=== PATIENT | female | born 2000 | race Caucasian/White ===

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

== ENCOUNTER 2021-04-29 12:06 | Emergency (ER) | payer MEDICAID, OTHER ==
[~2021-04-29] VITALS: Ht 520.7 cm; Wt 65.8 kg
[2021-04-29 12:31] LABS: *BILIRUBIN,URIN NEGATIVE (NEGATIVE); *BLOOD, URINE 3+ (NEGATIVE); *CLARITY,URINE CLOUDY (CLEAR); *COLOR,URINE AMBER (YELLOW); *KETONES,URINE TRACE (NEGATIVE); *UROBILINOGEN,URINE 0.2 E.U./dl (NORMAL); LEUKOCYTE ESTERASE ,URINE NEGATIVE (NEGATIVE); NITRITE, URINE NEGATIVE (NEGATIVE); PH,URINE 5.5 (5.0-8.0); UGLUCOSE NEGATIVE (NEGATIVE)
[2021-04-29 12:33] LABS: *URINE HCG, QUAL NEGATIVE (NEGATIVE)
[2021-04-29 13:22] LABS: HEMATOCRIT 40.1 % (31.2-41.9); MEAN CORPUSCULAR HEMOGLOBIN 32.4 uug (24.7-32.8); MEAN CORPUSCULAR VOLUME 93.9 fL (75.5-95.3); PLATELET COUNT (AUTO) 307 K/uL (179-408)
[2021-04-29] MEDS ORDERED: CEFTRIAXONE 500 MG VIAL IM ONE (13:45)
[2021-04-29] MEDS ORDERED: AZITHROMYCIN 250 MG TABLET PO ONE (13:45)
--- NOTE | 2021-04-29 14:00 | NUR ---
pt states she was Dx w/UTI and RX'd Bactrim, on for 7 days w/o it clearing. N/V for last 2 days. Denies CP, SOB, dizziness.
[2021-04-29] MEDS ORDERED: LIDOCAINE HCL 1% 20 ML VIAL ONE (14:04)
[2021-04-29] MEDS ORDERED: AZITHROMYCIN 250 MG TABLET ONE (14:04)
[2021-04-29] MEDS ORDERED: CEFTRIAXONE 500 MG VIAL ONE (14:04)
[2021-04-29 14:21] LABS: RBC,URINE TNTC /HPF (0-3); WBC,URINE 0-3 /HPF (0-3)
[2021-04-29 14:22] LABS: BACTERIA,URINE NONE SEEN /HPF (NONE SEEN); SQUAMOUS EPITHELIAL CELL,UR FEW /HPF (NONE SEEN)
[2021-04-29] MEDS ORDERED: NITR100C11 PO (14:50)
--- NOTE | 2021-04-29 14:54 | NUR ---
Gave pt RX and d/c instructions, pt verbalized understanding.
--- NOTE | 2021-04-29 14:55 | NUR ---
Gave pt RX and d/c instructions, pt verbalized understanding.
[2021-05-01 06:06] LABS: *GC NAA Negative (Negative); *TRIC.VAG. NAA Negative (Negative)
== END 2021-04-29 15:02 | disposition home or self-care (01) ==
LOC: ER 12:06
DX: N30.91 Cystitis, unspecified with hematuria (principal); Z87.440 Personal history of urinary (tract) infections
CPT/HCPCS: 36415; 81001; 84703; 85025; 87086; 87491; 96372; 99283; J0696; J3490; A4663; Q0144

== ENCOUNTER 2022-10-29 10:56 | Emergency (ER) | payer MEDICAID ==
[~2022-10-29] VITALS: Ht 152.4 cm; Wt 68.0 kg
[~2022-10-29 10:56] MED LIST: NITR100C11 PO
[2022-10-29] MEDS ORDERED: FAMOTIDINE. 20 MG/2 ML VIAL IV ONE ×2 (11:15→11:18)
[2022-10-29] MEDS ORDERED: IV NORMAL SALINE 1000 ML BAG IV ONE (11:15)
[2022-10-29] MEDS ORDERED: ONDANSETRON 4 MG/2 ML VIAL IV ONE ×2 (11:15→13:00)
[2022-10-29] MEDS ORDERED: ONDANSETRON 4 MG/2 ML VIAL ONE ×2 (11:17→12:49)
--- NOTE | 2022-10-29 11:20 | NUR ---
Patient a/o x 4. Nad noted. Observed patient walking into ER and room asssignment with a steady gait.
[2022-10-29 11:55] LABS: HEMATOCRIT 42.8 % (31.2-41.9); MEAN CORPUSCULAR HEMOGLOBIN 30.5 uug (24.7-32.8); PLATELET COUNT (AUTO) 468 K/uL (179-408)
[2022-10-29 11:57] LABS: *BILIRUBIN,URIN NEGATIVE (NEGATIVE); *BLOOD, URINE 3+ (NEGATIVE); *CLARITY,URINE CLEAR (CLEAR); *COLOR,URINE YELLOW (YELLOW); *KETONES,URINE 3+ (NEGATIVE); *UROBILINOGEN,URINE 0.2 E.U./dl (NORMAL); LEUKOCYTE ESTERASE ,URINE NEGATIVE (NEGATIVE); NITRITE, URINE NEGATIVE (NEGATIVE); UGLUCOSE NEGATIVE (NEGATIVE)
[2022-10-29 12:02] LABS: *URINE HCG, QUAL NEGATIVE (NEGATIVE)
[2022-10-29 12:06] LABS: CREATININE 0.6 mg/dL (0.6-1.3); POTASSIUM 3.4 mmol/L (3.5-5.1)
[2022-10-29 12:18] LABS: BILIRUBIN,DIRECT 0.2 mg/dL (0.0-0.2); BILIRUBIN,TOTAL 1.6 mg/dL (0.2-1.0)
[2022-10-29 12:19] LABS: BACTERIA,URINE MODERATE /HPF (NONE SEEN); SQUAMOUS EPITHELIAL CELL,UR MODERATE /HPF (NONE SEEN); WBC,URINE NONE SEEN /HPF (0-3)
--- NOTE | 2022-10-29 13:26 | NUR ---
Patient given cup of ice to see if she tolerates well. Dr. Rodriguez aware.
[2022-10-29] MEDS ORDERED: LIDOCAINE VISCUS 2% 15 ML UDC ONE (13:53)
[2022-10-29] MEDS ORDERED: MAG HYDROX/AL HYDROX/SIMETH 30 ML LIQUID UDC ONE (13:54)
[2022-10-29] MEDS ORDERED: FAMO-132 PO (13:58)
[2022-10-29] MEDS ORDERED: ONDA4TAB11 PO (13:58)
[2022-10-29] MEDS ORDERED: LIDOCAINE VISCUS 2% 15 ML UDC MM ONE (14:00)
[2022-10-29] MEDS ORDERED: MAG HYDROX/AL HYDROX/SIMETH 30 ML LIQUID UDC PO ONE (14:00)
[2022-10-29 14:07] VITALS: BP 138/90
--- NOTE | 2022-10-29 14:10 | NUR ---
Patient discharged to home in stable condition. A/O x 4. NAD noted.Ambulatory with a steady gait. All belongings with patient. Mother picked up patient. Written and verbal after care instructions given. Patient verbalizes understanding of instructions. Stressed follow up or return to ER for worsening s/s.
== END 2022-10-29 14:11 | disposition home or self-care (01) ==
LOC: ER 10:59
DX: R11.15 Cyclical vomiting syndrome unrelated to migraine (principal)
CPT/HCPCS: 99285; 96374; 71045; 96361; 96375; 80076; 80048; 81001; 84703; 83690; 85025; 84484; 36415; 96376; 87040; J3490; J2405 ×2; J7040; 93005; A4663

== ENCOUNTER 2023-12-18 14:21 | Emergency (ER) | payer MEDICAID ==
[~2023-12-18] VITALS: Ht 152.4 cm; Wt 65.8 kg
[~2023-12-18 14:21] MED LIST changes: +FAMO-132 PO; +ONDA4TAB11 PO
[2023-12-18] MEDS ORDERED: ONDANSETRON 4 MG/2 ML VIAL ONE (14:44)
[2023-12-18] MEDS: ONDANSETRON 4 MG/2 ML VIAL IV ONE (14:46)
[2023-12-18] MEDS: IV NORMAL SALINE 1000 ML BAG IV ONE (14:46)
[2023-12-18] MEDS ORDERED: diphenhydrAMINE 50 MG/1 ML VIAL ONE (15:44)
[2023-12-18] MEDS ORDERED: LIDOCAINE VISCUS 2% 15 ML UDC ONE (15:44)
[2023-12-18] MEDS ORDERED: METOCLOPRAMIDE HCL 10 MG/2 ML VIAL ONE (15:45)
[2023-12-18] MEDS ORDERED: MAG HYDROX/AL HYDROX/SIMETH 30 ML LIQUID UDC ONE (15:45)
[2023-12-18] MEDS ORDERED: FAMOTIDINE. 20 MG/2 ML VIAL IV ONE (15:45)
[2023-12-18 15:49] LABS: *CLARITY,URINE SLIGHTLY CLOUDY (CLEAR); *COLOR,URINE YELLOW (YELLOW); *KETONES,URINE 4+ (NEGATIVE); *PROTEIN,URINE 1+ (NEGATIVE); *UROBILINOGEN,URINE 0.2 E.U./dl (NORMAL); LEUKOCYTE ESTERASE ,URINE NEGATIVE (NEGATIVE); NITRITE, URINE NEGATIVE (NEGATIVE); UGLUCOSE NEGATIVE (NEGATIVE)
[2023-12-18] MEDS: METOCLOPRAMIDE HCL 10 MG/2 ML VIAL IV ONE (15:50)
[2023-12-18] MEDS: MAG HYDROX/AL HYDROX/SIMETH 30 ML LIQUID UDC PO ONE (15:50)
[2023-12-18] MEDS: FAMOTIDINE. 20 MG/2 ML VIAL IV ONE (15:50)
[2023-12-18] MEDS: diphenhydrAMINE 50 MG/1 ML VIAL IV ONE (15:50)
[2023-12-18] MEDS: LIDOCAINE VISCUS 2% 15 ML UDC MM ONE (15:50)
[2023-12-18 15:51] LABS: CALCIUM 9.3 mg/dL (8.5-10.1); CREATININE 0.8 mg/dL (0.6-1.3); POTASSIUM 3.4 mmol/L (3.5-5.1)
[2023-12-18 15:53] LABS: *BILIRUBIN,URIN 1+ (NEGATIVE); *BLOOD, URINE TRACE (NEGATIVE)
[2023-12-18 15:57] LABS: ALBUMIN 4.7 g/dL (3.4-5.0); BILIRUBIN,DIRECT 0.2 mg/dL (0.0-0.2); BILIRUBIN,TOTAL 1.6 mg/dL (0.2-1.0); TOTAL PROTEIN, SERUM 8.7 g/dL (6.4-8.2)
[2023-12-18 15:59] LABS: BACTERIA,URINE MODERATE /HPF (NONE SEEN); RBC,URINE 0-3 /HPF (0-3); SQUAMOUS EPITHELIAL CELL,UR MODERATE /HPF (NONE SEEN); URINE AMORPHOUS URATE MANY /HPF; WBC,URINE 0-3 /HPF (0-3)
[2023-12-18 16:00] LABS: *URINE HCG, QUAL NEGATIVE (NEGATIVE)
[2023-12-18] MEDS ORDERED: POTASSIUM CHLORIDE 20 MEQ TAB.PRT.SR ONE (16:17)
[2023-12-18] MEDS: POTASSIUM CHLORIDE 20 MEQ TAB.PRT.SR PO ONE (16:18)
[2023-12-18] MEDS ORDERED: OMEP20CA15 PO (16:59)
[2023-12-18] MEDS ORDERED: METO-295 PO (16:59)
[2023-12-18 17:06] LABS: WHITE BLOOD COUNT (AUTO) 13.8 K/uL (3.8-11.8)
[2023-12-18 17:09] LABS: BASOPHILS % (AUTO) 0.3 % (0.0-2.0); HEMATOCRIT 43.2 % (31.2-41.9); HEMOGLOBIN 15.4 g/dL (10.9-14.3); LYMPHOCYTES # (AUTO) 2.4 K/uL (0.8-4.8); LYMPHOCYTES % (AUTO) 17.2 % (20.5-51.5); MEAN CORPUSCULAR HEMOGLOBIN 31.3 uug (24.7-32.8); MEAN CORPUSCULAR HGB CONC 36 g/dL (32.3-35.6); MEAN CORPUSCULAR VOLUME 87.8 fL (75.5-95.3); MONOCYTES % (AUTO) 7.4 % (0.0-11.0); NEUTROPHILS # (AUTO) 10.3 K/uL (1.8-8.9); NEUTROPHILS % (AUTO) 75.1 % (38.5-71.5); PLATELET COUNT (AUTO) 355 K/uL (179-408); RED BLOOD CELL COUNT(AUTO) 4.92 MIL/uL (3.63-4.92); RED CELL DISTRIBUTION WIDTH 12.8 % (12.3-17.7)
[2023-12-18 17:10] LABS: DIFFERENTIAL COMMENT 1
[2023-12-18 17:26] VITALS: BP 132/74; O2SAT 99
== END 2023-12-18 17:27 | disposition home or self-care (01) ==
LOC: ER 14:21
DX: R11.2 Nausea with vomiting, unspecified (principal); R10.9 Unspecified abdominal pain; R10.2 Pelvic and perineal pain; E87.6 Hypokalemia; E86.0 Dehydration; D72.829 Elevated white blood cell count, unspecified; R82.4 Acetonuria; K21.9 Gastro-esophageal reflux disease without esophagitis; Z79.899 Other long term (current) drug therapy
CPT/HCPCS: 99284; 96374; 96375; 96361; 80076; 80048; 81001; 84703; 83690; 85025; 36415; J1200; J3490; J2765; J2405; J7040; A4606; A4663

== ENCOUNTER 2024-04-04 00:37 | Emergency (ER) | payer MEDICAID ==
[~2024-04-04] VITALS: Ht 165.1 cm; Wt 65.8 kg
[~2024-04-04 00:37] MED LIST changes: +METO-295 PO; +OMEP20CA15 PO
[2024-04-04 00:40] VITALS: O2SAT 99
[2024-04-04] MEDS ORDERED: TETRACAINE HCL 0.5% OPHT DROP 2 ML BOTTLE ONE (01:11)
[2024-04-04] MEDS: FLUORESCEIN SODIUM 1 MG STRIP OP ONE (01:15)
[2024-04-04] MEDS: PROPARACAINE 0.5% OPHT DROP 15 ML BOTTLE OP ONE (01:15)
[2024-04-04] MEDS ORDERED: POLY10DR6 LEFTEYE (01:26)
[2024-04-04] MEDS ORDERED: CEPH500C2 PO (01:26)
== END 2024-04-04 01:35 | disposition home or self-care (01) ==
LOC: ER 00:49
DX: H10.9 Unspecified conjunctivitis (principal); H57.89 Other specified disorders of eye and adnexa; H04.302 Unspecified dacryocystitis of left lacrimal passage; R03.0 Elevated blood-pressure reading, without diagnosis of hypertension; K21.9 Gastro-esophageal reflux disease without esophagitis; R11.10 Vomiting, unspecified; Z79.899 Other long term (current) drug therapy
CPT/HCPCS: A4606; A4663